=== PATIENT | male | born 1940 | race Caucasian/White ===

== ENCOUNTER 2025-08-26 12:57 | Emergency (ER) | payer OTHER, MEDICARE ==
[2025-08-26 13:47] LABS: APPEARANCE,URINE CLOUDY (CLEAR)
[2025-08-26 13:48] LABS: OCCULT BLOOD,URINE LARGE (NEGATIVE)
[2025-08-26 13:50] LABS: SQUAMOUS EPITHELIAL CELLS,UR RARE /HPF; UROTHELIAL CELLS,URINE NOT SEEN /HPF
[2025-08-26] MEDS ORDERED: Sodium Chloride 0.9% 10 ML Syringe FLUSH PRN (13:54)
[2025-08-26 14:11] LABS: BASOPHILS PERCENT AUTO 0.2 % (0.1-1.3); EOSINOPHILS PERCENT AUTO 0.1 % (0.0-5.4); IMMATURE GRAN ABSOLUTE AUTO 0.05 K/uL (0.00-0.23); IMMATURE GRAN PERCENT AUTO 0.6 % (0.0-0.7); LYMPHOCYTES ABSOLUTE AUTO 0.37 K/uL (0.8-3.3); LYMPHOCYTES PERCENT AUTO 4.4 % (11.4-47.7); MONOCYTES ABSOLUTE AUTO 0.45 K/uL (0.20-0.90); MONOCYTES PERCENT AUTO 5.4 % (3.3-12.6); NEUTROPHILS ABSOLUTE AUTO 7.42 K/uL (1.0-7.6); NEUTROPHILS PERCENT AUTO 89.3 % (40.0-78.1); PLATELET COUNT,PLT 349 K/uL (130-375); RED BLOOD CELL COUNT 1.64 M/uL (4.14-5.76); WHITE BLOOD CELL COUNT,WBC 8.3 K/uL (3.2-11.0)
[2025-08-26 14:16] LABS: BASOPHILS ABSOLUTE AUTO 0.02 K/uL (0.00-0.10); EOSINOPHILS ABSOLUTE AUTO 0.01 K/uL (0.00-0.40)
[2025-08-26] MEDS: Sodium Chloride 0.9% 10 ML Syringe FLUSH ONE (14:34)
[2025-08-26] MEDS: Iopamidol 612 MG/ML 100 ML Bottle IV SCH (14:34)
[2025-08-26 14:39] LABS: PRO B-TYPE NATRIUR PEPT,BNPPRO 330.0 pg/mL (5-450); TROPONIN I HIGH SENSITIVITY 10.4 pg/mL (<=60.3)
[2025-08-26 14:44] LABS: A/G RATIO 0.8 (1.2-2.2); ALANINE AMINOTRANSFERASE,ALT 14 U/L (12-78); ASPARTATE AMNIOTRANSFERASE,AST 15 U/L (15-37); BILIRUBIN TOTAL 0.4 mg/dL (0.2-1.0); BLOOD UREA NITROGEN,BUN 26 mg/dL (7-18); CARBON DIOXIDE,CO2 23 mmol/L (21-32); CHLORIDE,CL 104 mmol/L (100-108); CREATININE 1.2 mg/dL (0.8-1.3); EST CRCL DRUG DOSING (CG) 44.19 mL/min; ESTIMATED GFR 59 mL/min (>60); GLUCOSE RANDOM 126 mg/dL (74-106); POTASSIUM,K 4.3 mmol/L (3.6-5.2); PROTEIN TOTAL,TP 5.5 g/dL (6.4-8.2); SODIUM,NA 137 mmol/L (140-148)
== END 2025-08-26 19:59 | disposition other institution (70) ==
LOC: JP.ED 12:57
DX: N13.30 Unspecified hydronephrosis (principal); N13.4 Hydroureter; D50.0 Iron deficiency anemia secondary to blood loss (chronic); R31.0 Gross hematuria; Z91.013 Allergy to seafood; Z79.899 Other long term (current) drug therapy
CPT/HCPCS: 36415; 36430; 71046; 74178; 80053; 81001; 83605; 83690; 83880; 84484; 85025; 86850; 86900; 86901; 86920; 86922; 99285; J7030; P9016; Q9967; 99284